=== PATIENT | female | born 1950 | race Caucasian/White ===

== ENCOUNTER → 2023-05-06 10:54 | Outpatient (REF) | payer OTHER, SELFPAY | LOC: RAD 10:54 | PROVIDERS: ATTENDING PHYSICIAN Internal Medicine Rheumatology; FAMILY PHYSICIAN Physician Assistant | DX: M81.0 Age-related osteoporosis without current pathological fracture (principal) | CPT/HCPCS: 77080 ==

== ENCOUNTER → 2024-01-06 12:10 | Outpatient (REF) | payer OTHER, SELFPAY | LOC: WDC 12:10 | PROVIDERS: ATTENDING PHYSICIAN Physician Assistant | DX: Z12.31 Encounter for screening mammogram for malignant neoplasm of breast (principal) | CPT/HCPCS: 77063; 77067 ==

== ENCOUNTER → 2024-03-09 06:30 | Day surgery (SDC) | payer OTHER, SELFPAY | LOC: GI 06:30 | PROVIDERS: ATTENDING PHYSICIAN Internal Medicine Gastroenterology | DX: D12.3 Benign neoplasm of transverse colon (principal); K57.30 Diverticulosis of large intestine without perforation or abscess without bleeding; K56.699 Other intestinal obstruction unspecified as to partial versus complete obstruction; Z86.0101 Personal history of adenomatous and serrated colon polyps; Z79.01 Long term (current) use of anticoagulants | CPT/HCPCS: 45385; 88305 ==

== ENCOUNTER 2024-08-14 06:13 | Day surgery (SDC) | payer OTHER, SELFPAY ==
[2024-08-13 12:18] LABS: Blood Urea Nitrogen 18 mg/dl (7-17); Calcium 8.9 mg/dl (8.4-10.2); Carbon Dioxide 31 mmol/L (22-30); Chloride 102 mmol/L (98-107); Glucose 99 mg/dl (70-99); Potassium 3.8 mmol/L (3.5-5.1); Sodium 141 mmol/L (135-145); eGFR > 60.00
--- NOTE | 2024-08-13 12:39 | PTCARENOTE ---
Abn ECG, Dr. Samaniego notified, no new interventions requested.
[2024-08-13 13:48] VITALS: BMI 42.3
[2024-08-14] VITALS (10 sets, daily range): BP systolic 139–158; BP diastolic 52–123; BMI 42.3
[2024-08-14] MEDS: NORMOSOL-R/PLASMALYTE-A 1000 IV (09:32)
[2024-08-14] MEDS: TYLENOL 1000 MG PO (09:33)
[2024-08-14] MEDS: CELEBREX 200 MG PO (09:33)
[2024-08-14] MEDS: DILAUDID 0.25 MG IV (11:59)
== END 2024-08-14 13:38 | disposition home or self-care (01) ==
LOC: SDS 06:13
PROVIDERS: ATTENDING PHYSICIAN Orthopaedic Surgery Hand Surgery
DX: M70.22 Olecranon bursitis, left elbow (principal)
CPT/HCPCS: 24105; 88304; 36415; 80048; 87070; 87075; 87205; 93005

== ENCOUNTER → 2025-01-07 13:39 | Outpatient (REF) | payer OTHER, SELFPAY | LOC: WDC 13:39 | PROVIDERS: ATTENDING PHYSICIAN Physician Assistant | DX: Z12.31 Encounter for screening mammogram for malignant neoplasm of breast (principal) | CPT/HCPCS: 77063; 77067 ==